=== PATIENT | female | born 1940 | race Caucasian/White ===

== ENCOUNTER 2016-08-16 21:35 | Emergency (ER) | payer MEDICARE ==
[~2016-08-16 21:35] MED LIST: *UNABLE3; ADVIL PO; AMLODIPINE PO; ASAB PO; ASCRIPTIN PO; AVALIDE1 TA2 PO; CENTRUM TAB1 TAB PO; CYANO1000T PO; DSS PO; FOLIC ACID PO; HALF81 PO; HEART MEDICATION PO; IRON PO; KLONO1 PO; L40 PO; LEVOTHYROXIN100 MCG PO; LEVOTHYROXIN112 MCG PO; LEVOTHYROXINE PO; LEVSINTAB SL; LORTAB 5 PO; LOVASTATIN; MEVACOR40 MG PO; MIGRAINE MED PO; MIRALAX POWDER1 PKT PO; NASACORTAQ NAS; NICODERM C14 MG/24 H TOP; NORCO1 TA1 PO; NORV5 PO; NORVASC PO; PROZAC PO; REQUIP PO; REQUIP25 PO; SIN25 PO; SINCR25100 PO; SINEMET PO; SYN1 PO; SYN112 PO; TAMBOCOR PO; TAMBOCOR150 MG PO; VISKEN5 PO; VITAMIN E PO; [UNRECOGNIZED DRUG - OTHER] PO
== END 2016-08-17 00:01 | disposition home or self-care (01) ==
LOC: ER 21:35
DX: S60.011A Contusion of right thumb without damage to nail, initial encounter (principal); M25.572 Pain in left ankle and joints of left foot; I10 Essential (primary) hypertension; J44.9 Chronic obstructive pulmonary disease, unspecified; I48.91 Unspecified atrial fibrillation; F17.200 Nicotine dependence, unspecified, uncomplicated; G20 Parkinson's disease; K58.9 Irritable bowel syndrome, unspecified; D64.9 Anemia, unspecified; Z79.82 Long term (current) use of aspirin; Z88.5 Allergy status to narcotic agent; Z79.899 Other long term (current) drug therapy; W19.XXXA Unspecified fall, initial encounter
CPT/HCPCS: 73130-RT; 73610-LT; 73630-LT; 99284; A9270-GY